=== PATIENT | female | born 1990 | race Caucasian/White ===

== ENCOUNTER 2019-06-18 12:35 | Inpatient (IN) ==
[2019-06-18] MEDS ORDERED: BETAMETHASONE ACETATE,SOD PHOS 6 MG/ML VIAL IM ONE (12:45)
[2019-06-18 13:15] LABS: Albumin * 2.5 gm/dl (3.4-5.0); BUN/Creatinine Ratio 10.6 (9.0-21.6); Ca. Corrected For Albumin 9.3 mg/dL (8.4-10.2); Calcium * 8.4 mg/dL (7.9-10.9); Total Protein 6.8 gm/dL (6.2-8.2)
[2019-06-18 13:23] LABS: Hematocrit 35.6 % (37.0-47.0); Hemoglobin 12.3 gm/dL (12.5-16.0); Mean Cell Volume 81.5 fl (78-100); Mean Corpuscular Hemoglobin 28.1 pg (27-31); Mean Corpuscular Hgb Conc 34.6 g/dl (32-36); Mean Platelet Volume 11.4 fl (8-12.5); Neutrophil # 5.7 K/mm3 (1.3-6.0); Neutrophil % 61.1 % (42-75.0); Platelet Count 242 K/mm3 (150-450); Red Blood Count 4.37 M/mm3 (4.2-5.4); Red Cell Distribution Width 12.6 % (11.5-14.0); White Blood Count 9.3 K/mm3 (4.0-10.5)
[2019-06-18 13:31] LABS: Cocaine Ur Negative (NEGATIVE); Urine Barbiturate Negative (NEGATIVE); Urine Benzodiazepines Negative (NEGATIVE); Urine Opiates Negative (NEGATIVE); Urine PCP Negative (NEGATIVE); Urine THC Negative (NEGATIVE)
[2019-06-18] MEDS ORDERED: RINGER'S SOLUTION,LACTATED 1,000 ML IV ONE (13:31)
[2019-06-18] MEDS ORDERED: ONDANSETRON 4 MG TAB.RAPDIS PO PRN (13:31)
[2019-06-18] MEDS ORDERED: OXYTOCIN/DEXTROSE 5%-WATER 30 UNITS/500 ML BAG IV ONE (13:31)
[2019-06-18] MEDS: RINGER'S SOLUTION,LACTATED 1,000 ML IV PRN ×2 (13:57→22:03)
[2019-06-18] MEDS: URSODIOL 300 MG CAPSULE PO SCH ×2 (13:58→22:04)
--- NOTE | 2019-06-18 14:24 | HP ---
Chief Complaint - Chief Complaint Date of Service: 06/18/19 Time of Service: 13:58 Chief Complaint: itching and decreased movement History of Present Illness: 29 yo at 36 5/7 weeks presents to L&D complaining of worsening intract able pruritis and decreased movement. Patient states she began itching about 2 weeks ago on the palms of her hands and soles of her feet. The itching was worse at night and has progressively spread to her entire body (mostly the trunk and extremities). She didn't say anything at her PN visits because she thought it was a sensitivity to soap or detergent. After not getting relief with anything she finally called this afternoon - prompted by decreased movement. This complicated by anemia, ADHD, h/o PP depression, and h/o substance abuse (cocaine) in 2006, and former smoker (quit in 1st trimester). Rh positive Rubella immune GBS negative Medical History (Updated 04/21/19 @ 08:51 by Andrew Muñoz RN) Subchorionic hemorrhage (Acute) ADHD (attention deficit hyperactivity disorder), combined type (Acute) Anemia Onset Date: 07/09/15 with pregnancies Acne Onset Date: Unknown Bacterial vaginitis Onset Date: Unknown Chlamydia Onset Date: ~2010 Elective Onset Date: ~2006 Fibroadenosis of breast Onset Date: ~2010 History of illicit drug use Onset Date: Unknown cocaine, stopped in 2006 Post depression Onset Date: ~05/2016 Tobacco use affecting in first trimester, antepartum Onset Date: 12/04/15 Surgical History: Surgical History (Updated 11/28/18 @ 14:54 by Yunior Foster DO) [place] teeth extracted Onset Date: ~2011 Family History: Family History (Updated 10/20/18 @ 10:02 by Baylee Harmon RN) Mother Hypercholesterolemia Sister Depression Brother Depression Father Depression ADHD Social History: (Last Reviewed 06/18/19 @ 14:08 by Yunior Foster DO) Social History: Marital status: Single household members: children, significant other number of children: 2 current occupational status: unemployed, previously employed, student Highest education level completed: some college, no degree Service: No Tobacco: Smoking Status: Former smoker Smoking cigarettes per day: 2 Alcohol: alcohol intake: former alcohol intake frequency: holiday/special occasion Substance Use: substance use type: former substance user, other details: cocaine Dietary Habits: caffeine: Yes Type: carbonated beverages Exercise: Physical activity type: none Review Of Systems (GEN) - Review of Systems Generalized/Overall Review: Present: No Symptoms Reported. Absent: Chills, Fever EENTM: Present: No Symptoms Reported Respiratory: Present: No Symptoms Reported Cardiac: Present: No Symptoms Reported Abdominal: Present: No Symptoms Reported Genitourinary: Present: No Symptoms Reported Musculoskeletal: Present: No Symptoms Reported Neurological: Present: No Symptoms Reported Skin: Present: Other - pruritis - especially at night and on palms/soles of hands/feet. Absent: Lesions, Rash, Change in Color Endocrine: Present: No Symptoms Reported Additional Comments: dark urine despite drinking lots of water decreased movement today Immunizations: IMMUNIZATION HX Immunizations Up to Date Yes History of Influenza Vaccine No Hx Pneumococcal Vaccination No Allergies/Adverse Reactions: Allergies Allergy/AdvReac Type Severity Reaction Status Date / Time No Known Allergies Allergy Verified 06/18/19 12:40 Home Medications: HOME MEDICATIONS vitamins no.121-iron 28 mg-folic acid 800 mcg tablet 1 tab PO DAILY tab 11/28/18 [Last Taken Unknown] ferrous sulfate 325 mg (65 mg iron) tablet 325 mg PO DAILY #30 tab 04/21/19 [Last Taken Unknown] Exam - Exam Vital Signs: Vital Signs - Last Taken Temp 36.2 C 06/18/19 12:40 Pulse 87 06/18/19 12:40 Resp 14 06/18/19 12:40 BP 129/86 06/18/19 12:40 Pulse Ox 99 06/18/19 12:40 Constitutional: Present: Alert, Oriented x3, Cooperative, No distress ENT Exam: Present: hearing grossly normal Neck: Present: supple. Absent: lymphadenopathy (R), lymphadenopathy (L), thyromegaly Breasts: Present: Exam deferred Respiratory: Present: lungs clear, no respiratory distress Cardiovascular/Chest: Present: regular rate, rhythm, no edema Abdomen: Present: soft, nontender, no rebound tenderness, no hepatospenomegaly, other - gravid /Rectal: Present: Other - /25/-3, soft, mid-position Extremity: Present: no pedal edema, no calf tenderness Skin Exam: Present: normal color, warm/dry, no cyanosis. Absent: jaundice Lymphatic: Present: no adenopathy Neurologic: Present: alert, normal mood/affect, oriented x 3 Appearance: Present: appropriate appearance Eye contact: Present: cooperative, good eye contact Thoughts: Present: normal thought pattern, normal mood /affect Diagnostic Studies: Abnormal Lab Results 06/18/19 06/18/19 Range/Units 13: 13:01 Hgb 12.3 L (12.5-16.0) gm/dL Hct 35.6 L (37.0-47.0) % Immature Gran # (Auto) 0.04 H (0.000-0.0310) K/mm3 Eosinophils % 5.7 H (0.0-3.0) % Anion Gap 15.0 H (6.8-13.8) mmol/L Random Glucose 116 H (70-110) mg/dL AST 112 H (0-48) U/L ALT 232 H (19-67) U/L Alkaline Phosphatase 287 H (50-170) U/L Albumin 2.5 L (3.4-5.0) gm/dl Laboratory Results WBC 9.3 K/mm3 (4.0-10.5) 06/18/19 13:01 RBC 4.37 M/mm3 (4.2-5.4) 06/18/19 13:01 Hgb 12.3 gm/dL (12.5-16.0) L 06/18/19 13:01 Hct 35.6 % (37.0-47.0) L 06/18/19 13:01 MCV 81.5 fl (78-100) 06/18/19 13:01 MCH 28.1 pg (27-31) 06/18/19 13:01 MCHC 34.6 g/dl (32-36) 06/18/19 13:01 RDW 12.6 % (11.5-14.0) 06/18/19 13:01 Plt Count 242 K/mm3 (150-450) 06/18/19 13:01 MPV 11.4 fl (8-12.5) 06/18/19 13:01 Immature Gran % (Auto) 0.40 % (0.001-0.429) 06/18/19 13:01 Immature Gran # (Auto) 0.04 K/mm3 (0.000-0.0310) H 06/18/19 13:01 61.1 % (42-75.0) 06/18/19 13:01 28.4 % (20-51) 06/18/19 13:01 3.8 % (0.0-9) 06/18/19 13:01 5.7 % (0.0-3.0) H 06/18/19 13:01 0.6 % (0.0-1.0) 06/18/19 13:01 Nucleated RBC % 0.0 k/mm3 (0-1) 06/18/19 13:01 5.7 K/mm3 (1.3-6.0) 06/18/19 13:01 2.64 k/mm3 (1.5-3.5) 06/18/19 13:01 0.4 k/mm3 (0.0-1.0) 06/18/19 13:01 0.5 k/mm3 (0.0-0.7) 06/18/19 13:01 Absolute Basophils 0.1 k/mm3 (0.0-0.1) 06/18/19 13:01 Sodium 138 mmol/L (132-142) 06/18/19 13:01 138 mmol/L (130-142) 06/18/19 13:01 Potassium 4.0 mmol/L (3.4-4.6) 06/18/19 13:01 Chloride 102 mmol/L (97-106) 06/18/19 13:01 Carbon Dioxide 25.0 mmol/L (24-32.6) 06/18/19 13:01 15.0 mmol/L (6.8-13.8) H 06/18/19 13:01 BUN 7 mg/dL (3-23) D 06/18/19 13:01 0.66 mg/dL (0.4-1.4) 06/18/19 13:01 Est GFR (Non-Af Amer) 114 mL/min (60-130) 06/18/19 13:01 10.6 (9.0-21.6) 06/18/19 13:01 116 mg/dL (70-110) H 06/18/19 13:01 Calcium 8.4 mg/dL (7.9-10.9) 06/18/19 13:01 Calcium Adj for Albumin 9.3 mg/dL (8.4-10.2) 06/18/19 13:01 1.0 mg/dL (0.0-1.1) 06/18/19 13:01 AST 112 U/L (0-48) H 06/18/19 13:01 ALT 232 U/L (19-67) H 06/18/19 13:01 287 U/L (50-170) H 06/18/19 13:01 6.8 gm/dL (6.2-8.2) 06/18/19 13:01 2.5 gm/dl (3.4-5.0) L 06/18/19 13:01 Negative (NEGATIVE) 06/18/19 13:00 Negative (NEGATIVE) 06/18/19 13:00 Ur Phencyclidine Scrn Negative (NEGATIVE) 06/18/19 13:00 Urine Amphetamine Negative (NEGATIVE) 06/18/19 13:00 U Benzodiazepines Scrn Negative (NEGATIVE) 06/18/19 13:00 Negative (NEGATIVE) 06/18/19 13:00 Negative (NEGATIVE) 06/18/19 13:00 Assessment/Plan - Assessment/Plan (1) Intrahepatic cholestasis of Assessment: Admit for induction of labor. Betamethasone 12mg IM x 1 given. Start on Ursodiol to help control pruritis. Problem: Acute (2) ADHD (attention deficit hyperactivity disorder), combined type Problem: Acute
[2019-06-18 15:17] LABS: Prothrombin Time (Patient) 9.1 Seconds (9.1-10.7)
[2019-06-18 15:18] LABS: INR 0.92 INR (0.92-1.08); Partial Thrombolplastin Time 26.2 Seconds (24-32)
--- NOTE | 2019-06-18 19:08 | PN ---
Progess Note - Interim Date: 06/18/19 Time: 19:04 Narrative: 06/18/19 19:04 Patient rating contractions 5 out of 10 Vital signs stable. Pitocin at 12 mu/min. FHT: 120 baseline, reassuring contractions q 2-3 min Cervix: 4/50/-2, AROM-clear Impression: Intrauterine at 36 5/7 weeks induction of labor for IHCP Plan: Epidural as needed. Continue present plan.
[2019-06-18] MEDS ORDERED: BUPIVACAINE HCL/0.9 % NACL/PF 250 ML EP PRN (19:09)
[2019-06-18] MEDS ORDERED: ONDANSETRON HCL/PF 2 MG/ML VIAL IV PRN (19:09)
[2019-06-18] MEDS ORDERED: NALOXONE HCL 1 MG/1 ML SYRG IV PRN (19:09)
[2019-06-18] MEDS ORDERED: LIDOCAINE HCL/EPINEPHRINE 20 ML VIAL IJ ONE (19:10)
[2019-06-18] MEDS ORDERED: LIDOCAINE HCL/EPINEPHRINE 20 ML VIAL ONE (19:11)
[2019-06-18] MEDS ORDERED: fentaNYL CITRATE/PF 50 MCG/ML AMPUL ONE (19:21)
--- NOTE | 2019-06-18 19:41 | ANES ---
Anesthesia Pre Procedure Eval Vitals/Labs: Last Vital Signs Temp 36.2 C 06/18/19 12:40 Pulse 87 06/18/19 12:40 Resp 14 06/18/19 12:40 BP 129/86 06/18/19 12:40 Pulse Ox 99 06/18/19 12:40 HOME MEDICATIONS vitamins no.121-iron 28 mg-folic acid 800 mcg tablet 1 tab PO DAILY tab 11/28/18 [Last Taken Unknown] ferrous sulfate 325 mg (65 mg iron) tablet 325 mg PO DAILY #30 tab 04/21/19 [Last Taken Unknown] Allergies/Adverse Reactions: Allergies Allergy/AdvReac Type Severity Reaction Status Date / Time No Known Allergies Allergy Verified 06/18/19 12:40 - Planned Procedure Planned Procedure: IHCP Medication List Reviewed:: Yes Allergies Verified: Yes Medical History (Updated 06/18/19 @ 14:23 by Yunior Foster DO) Subchorionic hemorrhage (Acute) ADHD (attention deficit hyperactivity disorder), combined type (Acute) Anemia Onset Date: 07/09/15 with pregnancies Acne Onset Date: Unknown Bacterial vaginitis Onset Date: Unknown Chlamydia Onset Date: ~2010 Elective Onset Date: ~2006 Fibroadenosis of breast Onset Date: ~2010 History of illicit drug use Onset Date: Unknown cocaine, stopped in 2006 Post depression Onset Date: ~05/2016 Tobacco use affecting in first trimester, antepartum Onset Date: 12/04/15 Surgical History (Updated 06/18/19 @ 14:23 by Yunior Foster DO) [place] teeth extracted Onset Date: ~2011 Family History (Updated 10/20/18 @ 10:02 by Baylee Harmon RN) Mother Hypercholesterolemia Sister Depression Brother Depression Father Depression ADHD - Family Anesthesia History Family History:: no untoward family reactions to anesthesia - Airway/Neck/Teeth Within Normal Limits:: Yes Teeth Condition: intact Neck Exam: full range of motion Mallampatti Score: 2 Thyromental (T-M) distance: > 6 cm Mandibulo Hyoid distance: > 3 cm - Respiratory Respiratory Physical: lungs clear Smoking Status: Never smoker Sleep Apnea currently treated: No Sleep Apnea by current assessment: No - Cardiovascular Tolerate Activity: Good Heart Sounds: S1 & S2, Regular - Anesthesia Assessment and Plan ASA Class: PS, II, E Anesthesia Type Plan: Epidural Planned difficult intubation/equipment available: No
--- NOTE | 2019-06-18 19:42 | ANES ---
Post Anesthesia Assessment - Vital Signs Vitals: Last Vital Signs Temp 36.6 C 06/18/19 19:41 Pulse 78 06/18/19 19:41 Resp 16 06/18/19 19:41 BP 140/78 H 06/18/19 19:41 Pulse Ox 98 06/18/19 19:41 Airway Patency: Normal - Mental Status Level Of Consciousness: Awake - Pain Level Pain Score: 2 - N/V Assessment Nausea/Vomiting Presence: None Dehydration:: No
--- NOTE | 2019-06-18 19:42 | ANES ---
Post Anesthesia Discharge - Transfer of Care Transfer of Care handoff given to nurse: Yes - Anesthesia Post Op Note Anesthesia Post Op Note: Care transferred to OB RN
--- NOTE | 2019-06-18 19:44 | ANES ---
Anesthesia Procedure Note Procedure Note: ANESTHESIA PROCEDURE NOTE Date of Procedure: 06/18/2019 Time of procedure: 1929. Performed by: [place] CRNA Manager Plumbing: None. Preprocedure diagnosis: Active labor. Post procedure diagnosis: Same. Procedure: Insertion of labor epidural. Indications: The patient is a 29-year-old multi female in active labor requesting labor epidural for pain management. Findings: See below. Details of the procedure: The patient was placed in a sitting position. Back was prepped with DuraPrep. Patient was then draped in a sterile fashion. Lidocaine 1% was infiltrated to the skin and subcutaneous tissues at the level of the L3 4 interspace. The epidural space was identified using a 18-gauge Tuohy needle with [id number] technique. 20 mcg fentanyl was given intrathecally using a 27 ga. spinal needle. Epidural catheter was inserted without difficulty. Negative test dose was elicited using 3 mL of 2 % preservative-free lidocaine plus epinephrine 1 200,000. The epidural catheter was then taped and secured in place. EBL: Minimal. Fluids: N/A. Specimen: N/A. Post procedure condition: The patient tolerated the procedure well. No complications were noted. Thank you for this consultation. Best CRNA
[2019-06-18] MEDS ORDERED: fentaNYL CITRATE/PF 50 MCG/ML AMPUL IT SCH (20:00)
[2019-06-19] MEDS ORDERED: SENNOSIDES 8.6 MG TABLET PO PRN (00:05)
[2019-06-19] MEDS ORDERED: BENZOCAINE/MENTHOL 81 SPRAY CAN TP PRN (00:05)
[2019-06-19] MEDS ORDERED: BISACODYL 10 MG SUPP.RECT RC PRN (00:05)
[2019-06-19] MEDS ORDERED: GLYCERIN/WITCH HAZEL LEAF 40 APPL BOX TP PRN (00:05)
[2019-06-19] MEDS ORDERED: OXYTOCIN/DEXTROSE 5%-WATER 30 UNITS/500 ML BAG IV ONE (00:05)
[2019-06-19] MEDS ORDERED: HYDROCORTISONE 30 APPL TUBE TP PRN (00:05)
--- NOTE | 2019-06-19 00:28 | OR ---
Operative Report - Dictated Report Narrative: Spontaneous vaginal delivery of vigorously crying viable female at 2332 on 06/18/2019 with Apgars 10 and 9, weighing 2612 g in KENDELL position. Cord clamping delayed approximately 1 minute Placenta delivered complete, intact, with three vessel cord Estimated blood loss: Less than 50 ml Anesthesia: Epidural Lacerations: Periurethral abrasion with no repair needed. History for MU History for Definition: * The number of deliveries resulting in a live the patient experienced prior to current hospitalization * The previous delivery of live twins or any live multiple gestation is considered one live event. *If primagravida or nulliparous is documented select zero for the number of previous live births. Live Events: Live Events: 2
[2019-06-19] MEDS: oxyCODONE HCL/ACETAMINOPHEN 1 TAB TABLET PO PRN ×4 (02:06→19:04)
[2019-06-19] MEDS: IBUPROFEN 800 MG TABLET PO PRN ×4 (02:07→20:46)
--- NOTE | 2019-06-19 08:08 | PN ---
Subjective - Date and Time Seen Date: 06/19/19 Time: 08:05 Objective - Vitals Vitals: Last Vital Signs Temp 36.5 C 06/19/19 07:38 Pulse 76 06/19/19 07:38 Resp 16 06/19/19 07:38 BP 131/76 06/19/19 07:38 Pulse Ox 98 06/19/19 07:38 Patient states pruritus is improving some. Lochia moderate abdomen - soft, nontender Uterus -firm, at umbilicus - 2 no calf tenderness Impression: day #1 - s/p spontaneous vaginal delivery of 36 six 7- week female due to intrahepatic cholestasis of . Plan: Continue routine care. Continue ursodiol 200 mg twice daily. Recheck liver enzymes 24 hours after delivery. - Abnormal Lab Findings Abnormal Lab Findings: Abnormal Lab Results 06/18/19 06/18/19 Range/Units 13:01 13:01 Hgb 12.3 L (12.5-16.0) gm/dL Hct 35.6 L (37.0-47.0) % Immature Gran # (Auto) 0.04 H (0.000-0.0310) K/mm3 Eosinophils % 5.7 H (0.0-3.0) % Anion Gap 15.0 H (6.8-13.8) mmol/L Random Glucose 116 H (70-110) mg/dL AST 112 H (0-48) U/L ALT 232 H (19-67) U/L Alkaline Phosphatase 287 H (50-170) U/L Albumin 2.5 L (3.4-5.0) gm/dl Cauti Physician Documentation - Urinary Catheter Management Urethral ([place]) Date of Insertion: 06/18/19 Time of Insertion: 20:00 Date of Removal: 06/18/19 Time of Removal: 23:30 Assessment/Plan - Problems/Diagnosis (1) Intrahepatic cholestasis of Problem: Acute (2) ADHD (attention deficit hyperactivity disorder), combined type Problem: Acute
[2019-06-19] MEDS: DOCUSATE SODIUM 100 MG CAPSULE PO SCH ×2 (08:30→20:46)
[2019-06-19] MEDS: FERROUS SULFATE 325 MG TABLET PO SCH (08:30)
[2019-06-19] MEDS ORDERED: NON-FORMULARY 1 DOSE DOSE (Ferrous Sulfate [Iron] 325 MG) PO SCH (09:00)
[2019-06-19] MEDS ORDERED: [UNRECOGNIZED DRUG - REMARK] PO SCH (09:00)
[2019-06-19] MEDS ORDERED: URSODIOL 300 MG CAPSULE PO SCH (09:00)
[2019-06-19] MEDS: PRENATAL VITS96/IRON FUM/FOLIC 1 TAB TABLET PO SCH (09:47)
[2019-06-19 13:29] LABS: Albumin * 2.3 gm/dl (3.4-5.0); BUN/Creatinine Ratio 10.7 (9.0-21.6); Bilirubin, Total 0.8 mg/dL (0.0-1.1); Ca. Corrected For Albumin 9.8 mg/dL (8.4-10.2); Calcium * 8.8 mg/dL (7.9-10.9); Carbon Dioxide 23.8 mmol/L (24-32.6); Potassium 3.8 mmol/L (3.4-4.6); Total Protein 6.2 gm/dL (6.2-8.2)
[2019-06-19] MEDS: URSODIOL 300 MG CAPSULE PO SCH ×2 (13:56→17:32)
[2019-06-20] MEDS: oxyCODONE HCL/ACETAMINOPHEN 1 TAB TABLET PO PRN ×3 (01:42→16:00)
[2019-06-20] MEDS: FERROUS SULFATE 325 MG TABLET PO SCH ×2 (06:40→09:27)
[2019-06-20] MEDS: PRENATAL VITS96/IRON FUM/FOLIC 1 TAB TABLET PO SCH ×2 (06:40→09:27)
[2019-06-20] MEDS: IBUPROFEN 800 MG TABLET PO PRN ×2 (06:40→15:59)
[2019-06-20] MEDS: DOCUSATE SODIUM 100 MG CAPSULE PO SCH ×2 (06:41→09:27)
[2019-06-20] MEDS: URSODIOL 300 MG CAPSULE PO SCH ×2 (09:27→13:30)
--- NOTE | 2019-06-20 11:58 | PN ---
Subjective - Date and Time Seen Date: 06/20/19 Time: 11:58 Objective - Vitals Vitals: Last Vital Signs Temp 36.2 C 06/20/19 06:34 Pulse 82 06/20/19 06:34 Resp 18 06/20/19 06:34 BP 127/74 06/20/19 06:34 Pulse Ox 97 06/20/19 06:34 Patient denies complaints. Breast-feeding well Lochia wnl abdomen - soft, nontender Uterus -firm, at umbilicus - 2 no calf tenderness Impression: day #2 - s/p spontaneous vaginal delivery. Plan: Routine discharge instructions - Abnormal Lab Findings Abnormal Lab Findings: Abnormal Lab Results 06/19/19 Range/Units 12:55 Carbon Dioxide 23.8 L (24-32.6) mmol/L Anion Gap 15.0 H (6.8-13.8) mmol/L AST 117 H (0-48) U/L ALT 246 H (19-67) U/L Alkaline Phosphatase 257 H (50-170) U/L Albumin 2.3 L (3.4-5.0) gm/dl Cauti Physician Documentation - Urinary Catheter Management Urethral ([place]) Date of Insertion: 06/18/19 Time of Insertion: 20:00 Date of Removal: 06/18/19 Time of Removal: 23:30 Assessment/Plan - Problems/Diagnosis (1) Intrahepatic cholestasis of Problem: Acute (2) ADHD (attention deficit hyperactivity disorder), combined type Problem: Acute
[2019-06-20 16:47] VITALS: BP 152/79
== END 2019-06-20 16:30 | disposition home or self-care (01) | DRG 806 ==
LOC: OBCLINIC 12:35 → OB 13:27
PROVIDERS: ADMIT Obstetrics & Gynecology; ATTEND Obstetrics & Gynecology
CPT/HCPCS: 36415; 59025; 80053; 80307; 82239; 85025; 85610; 85730; 88307